=== PATIENT | female | born 1955 | race Caucasian/White ===

== ENCOUNTER 2019-05-31 16:58 | Emergency (ER) | payer BC ==
[~2019-05-31] VITALS: Ht 172.7 cm; Wt 80.3 kg
[2019-05-31] MEDS ORDERED: DIPHTH,PERTUSS(ACELL),TET TOX 0.5 ML DISP.SYRIN. VAX IM ONE (18:45)
--- NOTE | 2019-05-31 18:51 | RAD ---
Left Lower Extremity Venous Doppler Ultrasound History: Cellulitis and swelling Comparison: None Procedure: Color flow, duplex, spectral analysis and 2D images are obtained with and without compression in the area of the common femoral vein, superficial femoral vein - femoral vein junction, main femoral vein (superficial femoral vein) and popliteal vein. Veins of the proximal calf are also imaged. Findings: There is normal duplex flow, color flow and compressibility of all visualized vein segments. No evidence of deep venous thrombus is present. Impression: No evidence of DVT. Electronically signed by: Puneet Horan III, MD (05/31/2019 6:48 PM) [facility]
[2019-05-31 19:02] VITALS: BP 147/67
[2019-05-31] MEDS ORDERED: CLIN150C14 PO (19:11)
[2019-05-31] MEDS ORDERED: HYDR-3164 PO (19:11)
--- NOTE | 2019-05-31 19:11 | PHYS DOC ---
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 Patient states she also has redness on the left lower extremity, she states she was sent to the ED for DVT rule out to the left lower extremity. She has history of cellulitis. (BRAD MONSALVE APRN) Review of Systems Review of Systems Constitutional: Denies fever or chills [] Eyes: Denies change in visual acuity, redness, or eye pain [] HENT: Denies nasal congestion or sore throat [] Respiratory: Denies cough or shortness of breath [] Cardiovascular: No additional information not addressed in HPI [] GI: Denies abdominal pain, nausea, vomiting, bloody stools or diarrhea [] : Denies dysuria or hematuria [] Musculoskeletal: Denies back pain or joint pain [] Integument: Redness to bilateral lower extremities Neurologic: Denies headache, focal weakness or sensory changes [] All other systems were reviewed and found to be within normal limits, except as documented in this note. (BRAD MONSALVE APRN) Current Medications Current Medications Current Medications Medications (Trade) Dose Ordered Sig/Laura Start Time Stop Time Status Last Admin Dose Admin Ceftriaxone Sodium (Rocephin Im) 1 gm 1X ONCE 05/31/19 19:15 05/31/19 19:16 DC 05/31/19 18:57 1 GM Diphtheria/ Tetanus/Acell Pertussis (Boostrix) 0.5 ml ONCE ONCE 05/31/19 18:45 05/31/19 18:46 DC 05/31/19 18:57 0.5 ML (MARIETTA PALOMARES MD) Allergies Allergies Allergies Coded Allergies Type Severity Reaction Last Updated Verified No Known Drug Allergies 05/31/19 No (MARIETTA PALOMARES MD) Physical Exam Physical Exam Constitutional: Well developed, well nourished, no acute distress, non-toxic appearance. [] HENT: Normocephalic, atraumatic, bilateral external ears normal, oropharynx moist, no oral exudates, nose normal. [] Eyes: PERRLA, EOMI, conjunctiva normal, no discharge. [] Neck: Normal range of motion, no tenderness, supple, no stridor. [] Cardiovascular:Heart rate regular rhythm, no murmur [] Lungs & Thorax: Bilateral breath sounds clear to auscultation [] Abdomen: Bowel sounds normal, soft, no tenderness, no masses, no pulsatile masses. [] Skin: Left lower extremity with mild erythema consistent with cellulitis. There is mild edema also noted throughout the left lower extremity from ankle to the foot. Right lower extremity with trace amount of edema. Trace cellulitis. +2 bilateral pedal pulses. Negative Homans sign bilaterally. Back: No tenderness, no CVA tenderness. [] Extremities: No tenderness, no cyanosis, no clubbing, ROM intact, no edema. [] Neurologic: Alert and oriented X 3, normal motor function, normal sensory function, no focal deficits noted. [] Psychologic: Affect normal, judgement normal, mood normal. [] (BRAD MONSALVE APRN) Current Patient Data Vital Signs Vital Signs Date Time Temp Pulse Resp B/P (MAP) Pulse Ox O2 Delivery O2 Flow Rate FiO2 05/31/19 19:02 86 27 147/67 (93) 96 Room Air 05/31/19 17:05 100.1 100.1 (MARIETTA PALOMARES MD) EKG EKG [] (BRAD MONSALVE APRN) Radiology/Procedures Radiology/Procedures [] (BRAD MONSALVE APRN) Course & Med Decision Making Course & Med Decision Making Pertinent Labs and Imaging studies reviewed. (See chart for details) This is a 64-year-old female patient who presents to the ED today requesting venous Doppler of the left lower extremity for cellulitis, venous Doppler of the left lower extremity is negative. She does have trace amount of cellulitis beginning on the right lower extremity. Tetanus was updated. Given Rocephin IM in the ED. Discharge and clindamycin. Follow-up with her PCP next week. (BRAD MONSALVE APRN) Course & Med Decision Making Staff Physician Addendum: I was working in the ER during the course of this patient's visit. I was available for consultation as needed, but I was not directly involved in the care of this patient. (MARIETTA PALOMARES MD) Dragon Disclaimer Dragon Disclaimer This electronic medical record was generated, in whole or in part, using a voice recognition dictation system. (BRAD MONSALVE APRN) Departure Departure Impression: Primary Impression: Cellulitis of both lower extremities Disposition: HOME, SELF-CARE Condition: STABLE Referrals: UNKNOWN PCP NAME (PCP) Follow-up with your doctor next Patient Instructions: Cellulitis, [id number] Additional Instructions: You were evaluated in the emergency room for cellulitis of the lower extremit ies. Take the prescribed antibiotics until completed. Follow-up with your doctor next week. Come back to the ED point symptoms worsen. Scripts Hydrocodone/Apap 5-325 (NORCO 5-325 TABLET) 1 Each Tablet 1 TAB PO Q6HRS, #20 TAB Prov: BRAD MONSALVE APRN 05/31/19 Clindamycin Hcl (CLINDAMYCIN HCL) 150 Mg Capsule 3 CAP PO TID, #90 CAP Prov: BRAD MONSALVE APRN 05/31/19 BRAD MONSALVE APRN May 31, 2019 19:11 MARIETTA PALOMARES MD May 31, 2019 19:49
[2019-05-31] MEDS ORDERED: cefTRIAXone IM 1 GM VIAL IM ONE (19:15)
== END 2019-05-31 19:27 | disposition home or self-care (01) ==
LOC: ER 16:58
DX: L03.116 Cellulitis of left lower limb (principal); L03.115 Cellulitis of right lower limb; F17.210 Nicotine dependence, cigarettes, uncomplicated; Z90.710 Acquired absence of both cervix and uterus; Z90.89 Acquired absence of other organs
CPT/HCPCS: 90471; 90715; 93971; 96372; 99284; J0696